=== PATIENT | male | born 1930 | race Caucasian/White ===

== ENCOUNTER 2016-05-25 09:22 | Outpatient (CLI) | payer MEDICARE, OTHER ==
[2013-01-21 21:31] VITALS: BP 140/67
== END 2016-05-25 09:23 ==
LOC: POD 09:22
PROVIDERS: ATTEND Podiatrist Public Medicine
DX: B35.1 Tinea unguium (principal); L60.0 Ingrowing nail; M79.674 Pain in right toe(s); M79.675 Pain in left toe(s); L84 Corns and callosities
CPT/HCPCS: 11721; G0463

== ENCOUNTER 2016-08-27 08:14 | Emergency (ER) | payer MEDICARE, OTHER ==
--- NOTE | 2016-08-27 10:58 | ED Physician Documentation ---
Upper Extremity Problem - HISTORIAN Historian: patient, spouse - HPI Stated Complaint: Right Elbow Pain Chief Complaint: Upper Extremity Problem Additional Information: bursitis/ pain swelling rt elbow-pt reports onset past week. no known trauma Location: R elbow Timing: worse Duration: other (tender to touch or pressure) Recent Injury: No Context: prolonged pressure on ext Severity: mild, moderate Associated Symptoms: denies: fever, chills, sweating, shortness of breath Relieved By: rest Quality: pain, swelling (unable to flex to get food to mouth) - ROS CONST: no problems CVS/RESP: none GI/: none MS/SKIN/LYMPH: joint pain (elbow). 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 s/.p back surgery for sciatica) Surgeries/Procedures: other (back ca prostate) Allergies/Adverse Reactions: Allergies Allergy/AdvReac Type Severity Reaction Status Date / Time No Known Allergies Allergy Verified 08/27/16 08:28 Home Medications: Ambulatory Orders Medication Instructions Recorded Aspirin [Marlo] 81 mg PO DAILY 01/21/13 Gabapentin [Neurontin] 600 mg PO BID 01/21/13 Hydrochlorothiazide [Hydrodiuril] 25 mg PO DAILY 01/21/13 Calcium Carbonate/Vitamin D3 1 each PO DAILY 08/27/16 [Calcium 600 + D Tablet] Pravastatin Sodium [Pravachol] 20 mg PO HS 08/27/16 - SOCIAL HX Smoking History: non-smoker Alcohol Use: none Drug Use: none - FAMILY HX Family History: no significant history - VITAL SIGNS Vital Signs: Vital Signs Temp Pulse Resp BP Pulse Ox 98 F 59 L 18 148/60 98 08/27/16 08:15 08/27/16 08:15 08/27/16 08:15 08/27/16 08:15 08/27/16 08:15 - REVIEWED ASSESSMENTS Nursing Assessment Reviewed: Yes Vitals Reviewed: Yes ED Results Lab/Radiology - Orders Orders: ED Orders Category Date Time Status ELBOW 2 VIEWS [RAD] Urgent Exams 08/27/16 09:06 Ordered Upper Extremity Problem - EXAM General Appearance: mild distress, moderate distress Skin: warm/dry, normal color. No: cyanosis, diaphoresis Shoulder Exam: normal inspection, non-tender Elbow/Forearm Exam: bone tenderness, deformity, swelling (palpated olectanon bursa). No: normal ROM Wrist Exam: normal inspection Hand Exam: normal inspection Neuro/Tendon: normal sensation CVS: reg rate & rhythm, heart sounds normal Vascular: no vascular compromise Peripheral: sensation nml, motor nml. No: altered sensation Central: oriented X3, motor nml, sensation nml, mood/affect nml Respiratory: no resp. distress, breath sounds nml Abdomen: non-tender Discharge Clincal Impression: Olecranon bursitis of right elbow Referrals: Filipe Benson MD [Primary Care Provider] - 2 Days Home Medications: Ambulatory Orders Aspirin [Marlo] 81 mg PO DAILY 01/21/13 Gabapentin [Neurontin] 600 mg PO BID 01/21/13 Hydrochlorothiazide [Hydrodiuril] 25 mg PO DAILY 01/21/13 Calcium Carbonate/Vitamin D3 [Calcium 600 + D Tablet] 1 each PO DAILY 08/27/16 Pravastatin Sodium [Pravachol] 20 mg PO HS 08/27/16 Comments: home atoid restiong on any firm surface ibu w/meals Condition: Good Disposition: 01 HOME, SELF-CARE Decision to Admit: NO Decision Time: 10:58
[2016-08-27 10:59] VITALS: BP 120/68
--- NOTE | 2016-08-27 16:20 | Diagnostic Imaging Report ---
CELSO GR~ [facility] [id number] [address] ~ ~ ~ ~ Report Submission Date: August 27, 2016 10:00:11 AM CDT Patient ~ Study Name: PATRICIO KINNEY ~ Date: August 26, 2016 11:00:18 PM CDT ~ Modality Type: CR Gender: M ~ Description: UPPER EXTREMITY : 30 ~ Institution: [facility] Physician: CELSO GR ~ ~ ~ ~ Right elbow -three views CLINICAL HISTORY: ~ Pain and decreased range of motion. FINDINGS: ~ Examination right elbow in AP, lateral and oblique views demonstrates advanced degenerative changes with narrowing of the joint space and prominent osteophytes. ~There is an ulnar spur at the site of insertion of the triceps tendon. ~There is no evident joint effusion and no acute fracture. IMPRESSION: ~ Advanced degenerative changes. ~ No fracture. ~ Electronically signed on August 27, 2016 10:00:11 AM CDT by: Darren BARNES
== END 2016-08-27 10:58 | disposition home or self-care (01) ==
LOC: ED 08:14
DX: M70.31 Other bursitis of elbow, right elbow (principal)
CPT/HCPCS: 73070

== ENCOUNTER 2016-09-14 09:39 | Outpatient (CLI) | payer MEDICARE, OTHER | END 2016-09-14 09:40 | LOC: POD 09:39 | PROVIDERS: ATTEND Podiatrist Public Medicine | DX: B35.1 Tinea unguium (principal); L84 Corns and callosities; L60.0 Ingrowing nail; M79.674 Pain in right toe(s); M79.675 Pain in left toe(s); M20.42 Other hammer toe(s) (acquired), left foot; M20.41 Other hammer toe(s) (acquired), right foot | CPT/HCPCS: 11721; G0463 ==

== ENCOUNTER 2016-12-14 09:20 | Outpatient (CLI) | payer MEDICARE, OTHER | END 2016-12-14 09:21 | LOC: POD 09:20 | PROVIDERS: ATTEND Podiatrist Public Medicine | DX: B35.1 Tinea unguium (principal); M20.41 Other hammer toe(s) (acquired), right foot; M20.42 Other hammer toe(s) (acquired), left foot; M79.674 Pain in right toe(s); M79.675 Pain in left toe(s); L60.0 Ingrowing nail; L84 Corns and callosities | CPT/HCPCS: 11721; G0463 ==

== ENCOUNTER 2017-03-15 09:36 | Outpatient (CLI) | payer MEDICARE, OTHER | END 2017-03-15 11:12 | LOC: POD 09:36 | PROVIDERS: ATTEND Podiatrist Public Medicine | DX: M20.41 Other hammer toe(s) (acquired), right foot (principal); M20.42 Other hammer toe(s) (acquired), left foot; B35.9 Dermatophytosis, unspecified; B35.1 Tinea unguium; L84 Corns and callosities; L60.0 Ingrowing nail; M79.674 Pain in right toe(s); M79.675 Pain in left toe(s) | CPT/HCPCS: 11721; G0463 ==

== ENCOUNTER 2017-06-14 09:25 | Outpatient (CLI) | payer MEDICARE, OTHER | END 2017-06-14 09:30 | LOC: POD 09:25 | PROVIDERS: ATTEND Podiatrist Public Medicine | DX: M20.41 Other hammer toe(s) (acquired), right foot (principal); M20.42 Other hammer toe(s) (acquired), left foot; B35.9 Dermatophytosis, unspecified; B35.1 Tinea unguium; L84 Corns and callosities; L60.0 Ingrowing nail; M79.674 Pain in right toe(s); M79.675 Pain in left toe(s) | CPT/HCPCS: 11721; G0463 ==

== ENCOUNTER 2017-09-13 08:53 | Outpatient (CLI) | payer MEDICARE, OTHER | END 2017-09-13 08:55 | LOC: POD 08:53 | PROVIDERS: ATTEND Podiatrist Public Medicine | DX: M20.41 Other hammer toe(s) (acquired), right foot (principal); M20.42 Other hammer toe(s) (acquired), left foot; B35.1 Tinea unguium; L84 Corns and callosities; L60.0 Ingrowing nail; M79.674 Pain in right toe(s); M79.675 Pain in left toe(s) | CPT/HCPCS: 11721; G0463 ==